=== PATIENT | male | born 1955 | race Asian ===

== ENCOUNTER 2016-11-24 09:13 | Outpatient (CLI) | payer OTHER ==
[2016-11-24 09:46] LABS: PLATELET COUNT 436 K/uL (142-355)
[2016-11-24 10:06] LABS: POTASSIUM 3.5 mmol/L (3.6-5.2); SODIUM 133 mmol/L (136-145)
== END 2016-11-24 19:06 | disposition home or self-care (01) ==
LOC: LABW 09:13
PROVIDERS: Physician Assistant
DX: I10 Essential (primary) hypertension (principal); R73.09 Other abnormal glucose
CPT/HCPCS: 36415; 80053; 80061; 83036; 84439; 84443; 85027

== ENCOUNTER 2017-03-21 08:42 | Outpatient (CLI) | payer OTHER ==
[2017-03-21 09:57] LABS: POTASSIUM 3.8 mmol/L (3.6-5.2); SODIUM 138 mmol/L (136-145)
[2017-03-21 10:04] LABS: PLATELET COUNT 395 K/uL (142-355)
== END 2017-03-21 19:24 | disposition home or self-care (01) ==
LOC: LABW 08:42
PROVIDERS: Physician Assistant
DX: D47.3 Essential (hemorrhagic) thrombocythemia (principal); E78.4 Other hyperlipidemia; K21.9 Gastro-esophageal reflux disease without esophagitis; M54.2 Cervicalgia
CPT/HCPCS: 36415; 80053; 80061; 85027

== ENCOUNTER 2017-04-13 09:17 | Outpatient (CLI) | payer OTHER | END 2017-04-13 19:32 | disposition home or self-care (01) | LOC: RAD 09:17 | DX: K21.9 Gastro-esophageal reflux disease without esophagitis (principal) ==

== ENCOUNTER 2017-12-08 14:42 | Emergency (ER) | payer OTHER ==
[~2017-12-08] VITALS: Ht 172.7 cm; Wt 116.6 kg
== END 2017-12-08 15:05 | disposition home or self-care (01) ==
LOC: ED 14:42
DX: K02.9 Dental caries, unspecified (principal)
CPT/HCPCS: 99281

== ENCOUNTER 2018-11-02 10:19 | Outpatient (CLI) | payer OTHER ==
[2018-11-02 10:44] LABS: PLATELET COUNT 306 K/uL (142-355)
[2018-11-02 11:01] LABS: POTASSIUM 3.6 mmol/L (3.6-5.2)
== END 2018-11-02 21:37 | disposition home or self-care (01) ==
LOC: LABW 10:19
PROVIDERS: Physician Assistant
DX: I10 Essential (primary) hypertension (principal); D47.3 Essential (hemorrhagic) thrombocythemia; E78.5 Hyperlipidemia, unspecified
CPT/HCPCS: 36415; 80053; 80061; 83036; 84439; 84443; 85027

== ENCOUNTER 2019-04-30 10:54 | Outpatient (CLI) | payer OTHER | END 2019-04-30 22:48 | disposition home or self-care (01) | LOC: LABW 10:54 | PROVIDERS: Physician Assistant | DX: I10 Essential (primary) hypertension (principal); D47.3 Essential (hemorrhagic) thrombocythemia; E78.5 Hyperlipidemia, unspecified; R73.03 Prediabetes | CPT/HCPCS: 36415; 80061; 82306; 83036; 84443 ==

== ENCOUNTER 2020-11-21 10:19 | Emergency (ER) | payer OTHER ==
[~2020-11-21] VITALS: Ht 172.7 cm; Wt 117.9 kg
[2020-11-21 10:35] VITALS: TEMP 98.2
[2020-11-21 12:30] VITALS: BP 166/96
== END 2020-11-21 12:33 | disposition home or self-care (01) ==
LOC: ED 10:19
DX: R42 Dizziness and giddiness (principal); R06.02 Shortness of breath
CPT/HCPCS: 99284

== ENCOUNTER 2020-11-25 08:57 | Outpatient (CLI) | payer OTHER ==
[~2020-11-25] VITALS: Ht 172.7 cm; Wt 116.6 kg
[2020-11-25 09:05] VITALS: BP 135/83; TEMP 98.3
== END 2020-11-25 12:55 | disposition home or self-care (01) ==
LOC: INF 08:57
PROVIDERS: ATTEND Internal Medicine
DX: I95.1 Orthostatic hypotension (principal); R42 Dizziness and giddiness
CPT/HCPCS: 96360; 96361

== ENCOUNTER 2020-11-28 09:45 | Outpatient (CLI) | payer OTHER ==
[2020-11-28 11:13] LABS: POTASSIUM 3.7 mmol/L (3.6-5.2)
== END 2020-11-28 21:50 | disposition home or self-care (01) ==
LOC: LABW 09:45
PROVIDERS: ATTEND Nurse Practitioner
DX: R73.9 Hyperglycemia, unspecified (principal)
CPT/HCPCS: 36415; 80053; 83036

== ENCOUNTER 2021-10-01 08:55 | Outpatient (CLI) | payer OTHER ==
[2021-10-01 09:36] LABS: PLATELET COUNT 303 K/uL (142-355)
[2021-10-01 09:58] LABS: POTASSIUM 3.3 mmol/L (3.6-5.2)
== END 2021-10-01 19:22 | disposition home or self-care (01) ==
LOC: LABW 08:55
PROVIDERS: ATTEND Internal Medicine
DX: R06.00 Dyspnea, unspecified (principal); E11.9 Type 2 diabetes mellitus without complications
CPT/HCPCS: 36415; 80053; 80061; 81000; 83036; 83880; 84439; 84443; 85027; 85379

== ENCOUNTER 2022-04-05 11:41 | Outpatient (CLI) | payer OTHER ==
[2022-04-05 12:45] LABS: PLATELET COUNT 273 K/uL (142-355)
[2022-04-05 13:10] LABS: POTASSIUM 3.5 mmol/L (3.6-5.2)
== END 2022-04-05 18:48 | disposition home or self-care (01) ==
LOC: LABW 11:41
PROVIDERS: ATTEND Internal Medicine
DX: E11.9 Type 2 diabetes mellitus without complications (principal)
CPT/HCPCS: 36415; 80053; 80061; 81002; 83036; 84439; 84443; 85027

== ENCOUNTER 2022-08-11 09:49 | Outpatient (CLI) | payer OTHER | END 2022-08-11 18:58 | disposition home or self-care (01) | LOC: RESP 09:49 | PROVIDERS: ATTEND Specialist | DX: I49.8 Other specified cardiac arrhythmias (principal); Z79.899 Other long term (current) drug therapy | CPT/HCPCS: 93225 ==

== ENCOUNTER 2022-08-17 08:54 | Outpatient (CLI) | payer OTHER ==
[~2022-08-17] VITALS: Ht 172.7 cm; Wt 117.0 kg
== END 2022-08-17 17:00 ==
LOC: NM 08:54
PROVIDERS: ATTEND Specialist
DX: I49.8 Other specified cardiac arrhythmias (principal)
CPT/HCPCS: A9500; J2785

== ENCOUNTER 2023-01-11 10:47 | Outpatient (CLI) | payer OTHER ==
[2023-01-11 11:13] LABS: PLATELET COUNT 287 K/uL (142-355)
== END 2023-01-11 19:20 | disposition home or self-care (01) ==
LOC: LABW 10:47
PROVIDERS: ATTEND Internal Medicine
DX: E11.9 Type 2 diabetes mellitus without complications (principal)
CPT/HCPCS: 36415; 80061; 81002; 83036; 84439; 84443; 85027

== ENCOUNTER 2023-04-01 10:36 | Emergency (ER) | payer OTHER ==
[~2023-04-01] VITALS: Ht 172.7 cm; Wt 108.9 kg
[2023-04-01 10:38] VITALS: BP 184/88; TEMP 98.2
== END 2023-04-01 12:12 | disposition left against medical advice (07) ==
LOC: ED 10:36
DX: R07.81 Pleurodynia (principal); W19.XXXA Unspecified fall, initial encounter
CPT/HCPCS: 99281